=== PATIENT | female | born 1965 | race American Indian/Alaskan Native ===

== ENCOUNTER 2016-10-26 11:16 | Outpatient (CLI) | payer MEDICAID ==
--- NOTE | 2016-10-26 14:18 | Ultrasound Report ---
ULTRASOUND ABDOMEN COMPLETE: Technique: Transabdominal ultrasound with color Doppler interrogation. History: Chronic viral hepatitis see. Findings: The liver is normal size, contour and echotexture. No sclerotic changes or focal masses identified. The gallbladder dimensions are within normal limits without intraluminal stone, wall thickening, or pericholecystic fluid. The CBD measures 4 mm. The visualized portions of the pancreas including the head and proximal body are within normal limits. The kidneys demonstrate no hydronephrosis or mass. Cortical thickness and echogenicity are within normal limits bilaterally. The spleen and aorta are within normal limits. No aneurysmal dilatation is noted. No ascites. The bladder is unremarkable. IMPRESSION: Unremarkable abdominal ultrasound.
== END 2016-10-26 11:17 | disposition home or self-care (01) ==
LOC: US 11:16
PROVIDERS: ATTEND Internal Medicine Gastroenterology
DX: B18.2 Chronic viral hepatitis C (principal); R79.89 Other specified abnormal findings of blood chemistry
CPT/HCPCS: 76700

== ENCOUNTER 2017-04-04 08:28 | Outpatient (CLI) | payer SELFPAY ==
[2017-04-04] MEDS ORDERED: NACL ONE (11:52)
--- NOTE | 2017-04-04 12:44 | Cat Scan Report ---
CT ABDOMEN AND PELVIS WITH CONTRAST INDICATION: Abnormal findings of blood chemistry. COMPARISON: None similar. FINDINGS: Abdomen and pelvis CT performed following oral contrast and intravenous administration of 100 cc of Omnipaque 300. LUNG BASES: Nonspecific distal esophageal wall prominence/thickening, not excluded for gastroesophageal reflux and/or hiatal hernia, amongst others. 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 Another indeterminate, subcentimeter hepatic dome hypodensity, axial image 57. Otherwise unremarkable liver, spleen, gallbladder, pancreas, adrenals, abdominal aorta, IVC and kidneys. No ascites or significant adenopathy. Opacified GI tract nonobstructive. Normal appendix extends into the right hemipelvis, draping over the ovary. Mild ascending colon stool. PELVIS: Uterus surgically absent. Few small pelvic phleboliths. Grossly unremarkable adnexa/ovaries, urinary bladder and the rectosigmoid. No free fluid or significant adenopathy. Mild lower thoracic spine degenerative changes. CONCLUSION: No acute CT abnormality with various incidental findings, as above. Thank you for the opportunity to participate in this patient's care.
== END 2017-04-04 08:29 | disposition home or self-care (01) ==
LOC: CT 08:28
PROVIDERS: ATTEND Internal Medicine Gastroenterology
DX: B18.2 Chronic viral hepatitis C (principal); R79.89 Other specified abnormal findings of blood chemistry; K76.89 Other specified diseases of liver; I87.8 Other specified disorders of veins; M47.894 Other spondylosis, thoracic region; Z90.710 Acquired absence of both cervix and uterus
CPT/HCPCS: 74177; Q9967

== ENCOUNTER 2017-11-03 17:23 | Emergency (ER) | payer SELFPAY | END 2017-11-03 17:40 | disposition left against medical advice (07) | LOC: ED 17:23 | DX: Z53.21 Procedure and treatment not carried out due to patient leaving prior to being seen by health care provider (principal) ==

== ENCOUNTER 2018-06-30 10:42 | Emergency (ER) | payer SELFPAY ==
[2018-06-30 10:51] VITALS: BP 128/81
[2018-06-30] MEDS ORDERED: MOTRIN PO ONE (13:08)
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
--- NOTE | 2018-06-30 14:03 | XRay Report ---
CERVICAL SPINE, 3 views: History: Neck pain. Findings: The vertebral bodies, disk spaces, posterior elements and prevertebral soft tissues are intact. The dens is intact. No acute fracture or malalignment is identified. Mild degenerative disc disease is noted at C3-4, C4-5 and C5-6. Impression: Mild cervical spondylosis. No evidence for acute injury to the cervical spine.
--- NOTE | 2018-06-30 14:03 | XRay Report ---
LUMBOSACRAL SPINE, 3 VIEWS: History: Back pain Findings: The vertebral bodies, disk spaces and posterior elements are intact. No compression deformity or malalignment. Mild degenerative disc disease and mild facet arthropathy are identified at all levels. The SI joints are symmetric and unremarkable. Impression: Mild multilevel lumbar spondylosis. No acute process.
== END 2018-06-30 14:17 | disposition home or self-care (01) ==
LOC: ED 10:42
DX: S13.4XXA Sprain of ligaments of cervical spine, initial encounter (principal); S39.012A Strain of muscle, fascia and tendon of lower back, initial encounter; J45.909 Unspecified asthma, uncomplicated; F17.200 Nicotine dependence, unspecified, uncomplicated; Z90.710 Acquired absence of both cervix and uterus; V89.2XXA Person injured in unspecified motor-vehicle accident, traffic, initial encounter; Y93.89 Activity, other specified; Y92.89 Other specified places as the place of occurrence of the external cause; Y99.8 Other external cause status
CPT/HCPCS: 72040; 72100; 99283